=== PATIENT | male | born 1970 ===

== ENCOUNTER 2018-02-14 10:22 | Emergency (ER) | payer OTHER ==
[2018-02-14 10:33] VITALS: BP 119/77; PULSE 82; RESP 16; TEMP 98.9; O2SAT 98
--- NOTE | 2018-02-14 10:56 | C.PDOC ---
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 PS ONSET WHILE WALKING, FELT IMMEDIATE PAIN THEN FELL. PAIN WORSE WHEN POINTING R FOOT. NO OTHER ASSOC INJ EXAM MILD DIST NONTOXIC EXT R LEG +TEND ACHILLES AREA NO SWELL. +PAIN W DORSIFLEXION. . NO BONY TEND, DEFORM SKIN INTACT NEURO NO FOCAL DEF MDM CAM BOOT RX, PODIATRY, CRUTCHES Time Seen by Provider: 02/14/18 10:41 Chief Complaint (Nursing): Lower Extremity Problem/Injury History Per: Patient History/Exam Limitations: no limitations Past Medical History Reviewed: Historical Data, Nursing Documentation, Vital Signs Vital Signs: Last Vital Signs Temp 98.9 F 02/14/18 10:31 Pulse 82 02/14/18 10:31 Resp 16 02/14/18 10:31 BP 119/77 02/14/18 10:31 Pulse Ox 98 02/14/18 11:09 Family History: States: No Known Family Hx - Social History Hx Alcohol Use: Yes Hx Substance Use: No - Immunization History Hx Tetanus Toxoid Vaccination: No Hx Influenza Vaccination: No Hx Pneumococcal Vaccination: No Review Of Systems Constitutional: Negative for: Fever, Chills Respiratory: Negative for: Shortness of Breath Gastrointestinal: Negative for: Nausea, Vomiting Musculoskeletal: Positive for: Foot Pain (right ankle pain) Neurological: Negative for: Weakness, Numbness Physical Exam - Physical Exam Appears: Non-toxic, No Acute Distress Skin: Normal Color, Warm, Dry, No Rash Head: Atraumatic Eye(s): bilateral: Normal Inspection Nose: Normal Oral Mucosa: Moist Lips: Normal Appearing Neck: Normal ROM Chest: Symmetrical Respiratory: No Accessory Muscle Use (NARD) Extremity: No Deformity, No Swelling, Other ( R LEG +TEND ACHILLES AREA NO SWELL. +PAIN W DORSIFLEXION. . NO BONY TEND, DEFORM) Pulses: Left Dorsalis Pedis: Normal, Right Dorsalis Pedis: Normal Neurological/Psych: Oriented x3, Normal Speech ED Course And Treatment O2 Sat by Pulse Oximetry: 98 Pulse Ox Interpretation: Normal - Other Rad R ANKLE X-Ray: Interpreted by Me (NEG) Medical Decision Making Medical Decision Making: CAM BOOT RX, PODIATRY, CRUTCHES Disposition Counseled Patient/Family Regarding: Studies Performed, Diagnosis, Need For Followup, Rx Given - Disposition Referrals: [facility] [Outside] [facility] [Outside] Nabila Pandya DPM [Staff Provider] - Disposition: HOME/ ROUTINE Disposition Time: 11:02 Condition: IMPROVED Additional Instructions: Instrucciones del dispositivo de arranque CAM Walker Obtenga ms informmariela sobre biztalk architect usar gresham Dispositivo de arranque CAM Walker. Import Manager colocar gresham dispositivo de arranque CAM Walker Aplica un calcetn alessia en el pie que necesita el arranque. Afloje todas las tiras de velcro y shruthi el forro de espuma. Sintese con la rodilla doblada a 90 y deslice el pie dentro del forro de espuma. Asegrese de que el taln est completamente hacia atrs y que el pie est completamente asentado en el forro. Cierre el forro alrededor de la espinilla y el pie. Comenzando con el pie, asegure las tiras de velcro seguidas por las tiras de velcro en la espinilla. Asegrese de ajustar todas las tiras de velcro. Si CAM Walker es un Aircast o Sondra, entonces agregue aire usando el bulbo de mano provisto en la vlvula hasta que el tobillo sienta un poco de presin. Calendario de uso Dependiendo de la razn para usar el CAM Walker Boot, el horario de uso puede variar. Sigue las indicaciones del doctor. Si aparece enrojecimiento, hematomas o ampollas y no desaparece en 20 minutos, no vuelva a colocar el cors. Comunquese con gresham ortopedista de Ability para programar comfort estee para un ajuste. Limpieza y mantenimiento de dispositivos ortopdicos El forro de espuma puede lavarse a mano en agua fra con un detergente suave y dejarse secar por goteo. El andador se puede limpiar con un ginger hmedo. Si el velcro no se pega coleen al soporte, verifique la acumulacin de pelusa en el velcro y qutelo. Informacin importante [facility] las siguientes precauciones con gresham dispositivo de arranque CAM Walker: Tenga en cuenta que los cambios de volumen en el cuerpo pueden afectar la forma en que encajar el arranque. NO te acuestes nunca en el maletero, a menos que te haya recetado tu mdico. Tenga en cuenta que el arranque tiene comfort suela adjunta. Asegrese de elegir un zapato que le permita sentirse estable al caminar. Prescriptions: Acetaminophen [Tylenol Extra Strength] 2 tab PO Q6 #30 tablet Ibuprofen [Motrin] 600 mg PO Q6 #30 tab Instructions: How to Use Crutches, Achilles Tendon Rupture (DC) Forms: [employer] (Panamanian), Work Excuse Print Language: KAZAKH - Clinical Impression Clinical Impression: Achilles tendon sprain - Scribe Statement The provider has reviewed the documentation as recorded by the Scribe (Romero Villa) All medical record entries made by the Scribe were at my direction and personally dictated by me. I have reviewed the chart and agree that the record accurately reflects my personal performance of the history, physical exam, medical decision making, and the department course for this patient. I have also personally directed, reviewed, and agree with the discharge instructions and disposition. Orthopedic Care Application Of:: Ankle Air Cast - Ambulation Aids Ambulation Aids: Adult Crutches
--- NOTE | 2018-02-14 13:00 | RAD ---
PROCEDURE: Right Ankle Radiographs. HISTORY: TRAUMA COMPARISON: None FINDINGS: BONES: Bone alignment and mineralization are normal. There is no acute displaced fracture or bone destruction. 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 Ankle mortise maintained. Talar dome intact SOFT TISSUES: Normal. OTHER FINDINGS: None. IMPRESSION: No acute fracture or dislocation.
== END 2018-02-14 11:27 | disposition home or self-care (01) ==
LOC: C.ER 10:22
DX: S86.011A Strain of right Achilles tendon, initial encounter (principal); X50.0XXA Overexertion from strenuous movement or load, initial encounter; Y93.67 Activity, basketball; Y92.39 Other specified sports and athletic area as the place of occurrence of the external cause